=== PATIENT | female | born 1960 | race Caucasian/White ===

== ENCOUNTER 2017-09-18 09:54 | Emergency (ER) | payer MEDICARE ==
[~2017-09-18] VITALS: Ht 167.6 cm; Wt 85.0 kg
[~2017-09-18 09:54] MED LIST: ALBU8.5H8 IH; CLON1TAB4 PO; CLOT12CR TOP; CLOT15CR9 TP; CYCL-1 PO; HYDR-569 PO; LAMO200T PO; LIDO700A5 TOP; MEDR5TAB PO; METH-360 PO; METH4TAB3 PO; METO-477 PO; MONT10TA21 PO; NYSPWD TP; OMEP40CA37 PO; ONDA4TAB6 PO; ONDA4TAB9 PO; PRAV40TA3 PO; VARE0.5T PO; VENL150C2 PO; [UNRECOGNIZED DRUG - CODE] TOP
[2017-09-18] MEDS ORDERED: cyclobenzaprine 10mg tablet PO ONE (11:55)
[2017-09-18] MEDS ORDERED: CYCL-1 PO (12:03)
[2017-09-18 12:20] VITALS: BP 178/90
[2017-09-18] MEDS ORDERED: METO1TAB12 PO (12:34)
[2017-09-18] MEDS ORDERED: ALBU8.5H8 INH (12:34)
== END 2017-09-18 12:21 | disposition home or self-care (01) ==
LOC: ER 09:54
DX: S39.012A Strain of muscle, fascia and tendon of lower back, initial encounter (principal); I10 Essential (primary) hypertension; G89.29 Other chronic pain; J44.9 Chronic obstructive pulmonary disease, unspecified; F17.200 Nicotine dependence, unspecified, uncomplicated; Z88.0 Allergy status to penicillin; Z88.1 Allergy status to other antibiotic agents; Z88.5 Allergy status to narcotic agent; W18.09XA Striking against other object with subsequent fall, initial encounter; Y93.89 Activity, other specified; Y92.89 Other specified places as the place of occurrence of the external cause; Y99.8 Other external cause status
CPT/HCPCS: 99284

== ENCOUNTER 2017-10-31 10:51 | Emergency (ER) | payer MEDICARE, OTHER ==
[~2017-10-31] VITALS: Ht 167.6 cm; Wt 81.8 kg
[~2017-10-31 10:51] MED LIST changes: +ALBU6.7H INH; +ALBU8.5H8 INH; -ONDA4TAB9 PO; +PRED20TA PO
[2017-10-31] MEDS ORDERED: ipratropium/albuterol 3ml nebule NEB ONE (11:10)
[2017-10-31] MEDS ORDERED: methylPREDNISolone sod succ 125mg/2ml vial IV ONE (11:15)
[2017-10-31 11:31] LABS: BASOPHILS % (AUTO) 0.1 % (0-1); EOSINOPHILS % (AUTO) 0 % (0-6); HEMOGLOBIN 12.5 g/dl (12.0-16.0); LYMPHOCYTES # (AUTO) 0.8 X10'3 (1.1-4.8); LYMPHOCYTES % (AUTO) 8.5 % (21-51); MEAN CORPUSCULAR HEMOGLOBIN 27.2 PG (27.0-31.0); MEAN CORPUSCULAR HGB CONC 33.9 % (33.0-36.5); MEAN CORPUSCULAR VOLUME 80.1 FL (78-98); MEAN PLATELET VOLUME 8.2 FL (7.4-10.4); MONOCYTES # (AUTO) 0.9 X10'3 (0-0.9); MONOCYTES % (AUTO) 9.4 % (2-12); NEUTROPHILS # (AUTO) 7.6 X10'3 (1.8-7.7); PLATELET COUNT 200 X10'3 (140-440); RED BLOOD COUNT 4.62 X10'6 (4.20-5.60); RED CELL DISTRIBUTION WIDTH 15.3 % (11.5-14.5); WHITE BLOOD COUNT 9.2 X10'3 (4.5-11.0)
[2017-10-31 11:41] LABS: PARTIAL THROMBOPLASTIN TIME 29 SECONDS (22-32); PROTHROMBIN TIME 10.3 SECONDS (9.0-12.0)
[2017-10-31 11:53] LABS: ALANINE AMINOTRANSFERASE 21 U/L (12-78); ALBUMIN 3.5 G/DL (3.4-5.0); ALKALINE PHOSPHATASE 73 IU/L (46-116); ANION GAP 11 (8-16); ASPARTATE AMINO TRANSFERASE 25 U/L (10-37); BILIRUBIN,TOTAL 0.3 MG/DL (0.1-1.0); BLOOD UREA NITROGEN 7 MG/DL (7-18); BUN/CREATININE RATIO 10.9 (6.6-38.0); CALCIUM 8.9 MG/DL (8.5-10.1); CHLORIDE 103 MMOL/L (99-107); CREATININE 0.64 MG/DL (0.40-0.90); GLUCOSE 125 MG/DL (70-104); POTASSIUM 3.2 MMOL/L (3.5-5.1); SODIUM 141 MMOL/L (135-145); TOTAL CARBON DIOXIDE 27.4 MMOL/L (24-32); eGFR > 90 ML/MIN
[2017-10-31] MEDS ORDERED: ondansetron/PF 4mg/2ml inj IV ONE (12:40)
[2017-10-31] MEDS ORDERED: morphine 4 MG/ML inj SYRINge IM ONE (12:40)
[2017-10-31 14:56] VITALS: BP 148/92
== END 2017-10-31 15:09 | disposition home or self-care (01) ==
LOC: ER 10:52
DX: J44.9 Chronic obstructive pulmonary disease, unspecified (principal); M54.9 Dorsalgia, unspecified; G89.29 Other chronic pain; I10 Essential (primary) hypertension; Z88.1 Allergy status to other antibiotic agents; Z90.49 Acquired absence of other specified parts of digestive tract; Z88.0 Allergy status to penicillin; Z79.899 Other long term (current) drug therapy
CPT/HCPCS: 36415; 71045; 80053; 83880; 84484; 85025; 85610; 85730; 93005; 94640; 94760; 96372; 96374; 96375; 99285; J2270; J2405; J2930

== ENCOUNTER 2018-03-21 01:59 | Emergency (ER) | payer MEDICARE ==
[~2018-03-21] VITALS: Ht 167.6 cm; Wt 69.5 kg
[~2018-03-21 01:59] MED LIST changes: +CLON-371 PO; -CLON1TAB4 PO; -PRED20TA PO
[2018-03-21] MEDS ORDERED: morphine 4 MG/ML inj SYRINge IV ONE (02:05)
[2018-03-21] MEDS ORDERED: ondansetron/PF 4mg/2ml inj IV ONE (02:05)
[2018-03-21] MEDS ORDERED: normal saline 1000ML IV soln IVB ONE (02:05)
[2018-03-21 02:28] LABS: BASOPHILS # (AUTO) 0.1 X10'3 (0-0.2); BASOPHILS % (AUTO) 0.6 % (0-1); EOSINOPHILS # (AUTO) 0.6 X10'3 (0-0.9); EOSINOPHILS % (AUTO) 3.8 % (0-6); HEMATOCRIT 36.5 % (35.0-45.0); HEMOGLOBIN 12.2 g/dl (12.0-16.0); LYMPHOCYTES # (AUTO) 4.1 X10'3 (1.1-4.8); LYMPHOCYTES % (AUTO) 26.6 % (21-51); MEAN CORPUSCULAR HEMOGLOBIN 26.4 PG (27.0-31.0); MEAN CORPUSCULAR HGB CONC 33.5 % (33.0-36.5); MEAN CORPUSCULAR VOLUME 78.9 FL (78-98); MONOCYTES # (AUTO) 0.7 X10'3 (0-0.9); MONOCYTES % (AUTO) 4.7 % (2-12); NEUTROPHILS % (AUTO) 64.3 % (42-75); PLATELET COUNT 200 X10'3 (140-440); RED BLOOD COUNT 4.63 X10'6 (4.20-5.60); RED CELL DISTRIBUTION WIDTH 18.6 % (11.5-14.5); WHITE BLOOD COUNT 15.6 X10'3 (4.5-11.0)
[2018-03-21] MEDS ORDERED: iohexol 300mg/ml 100ml inj. ONE (02:31)
[2018-03-21] MEDS ORDERED: LORA-269 PO (02:38)
[2018-03-21] MEDS ORDERED: ZOL50T PO (02:38)
[2018-03-21] MEDS ORDERED: LURA20TA PO (02:38)
[2018-03-21] MEDS ORDERED: TRAZ-146 PO (02:38)
[2018-03-21] MEDS ORDERED: BUSP10TA11 PO (02:39)
[2018-03-21 02:43] LABS: ALANINE AMINOTRANSFERASE 18 U/L (12-78); ALBUMIN 3.2 G/DL (3.4-5.0); ALBUMIN/GLOBULIN RATIO 0.9 (1.1-1.5); ALKALINE PHOSPHATASE 116 IU/L (46-116); ANION GAP 10 (8-16); ASPARTATE AMINO TRANSFERASE 14 U/L (10-37); BILIRUBIN,TOTAL 0.2 MG/DL (0.1-1.0); BLOOD UREA NITROGEN 5 MG/DL (7-18); BUN/CREATININE RATIO 6.2 (6.6-38.0); CHLORIDE 102 MMOL/L (99-107); CREATININE 0.81 MG/DL (0.40-0.90); GLUCOSE 103 MG/DL (70-104); POTASSIUM 3.6 MMOL/L (3.5-5.1); SODIUM 139 MMOL/L (135-145); TOTAL PROTEIN 6.8 G/DL (6.4-8.2); eGFR 73 ML/MIN
[2018-03-21 02:44] LABS: CREATINE KINASE 49 U/L (26-192); ETHANOL < 0.010 GM/DL (0.0-0.010); LIPASE 146 U/L (73-393); MAGNESIUM 1.8 MG/DL (1.5-2.4)
[2018-03-21 02:54] LABS: URINE AMPHETAMINE SCREEN NEGATIVE (Neg); URINE BARBITUATE SCREEN NEGATIVE (Neg); URINE BENZODIAZEPINES SCREEN NEGATIVE (Neg); URINE CANNABINOID SCREEN NEGATIVE (Neg); URINE COCAINE SCREEN NEGATIVE (Neg); URINE METHADONE SCREEN NEGATIVE (Neg); URINE OPIATE SCREEN NEGATIVE (Neg); URINE PHENCYCLIDINE SCREEN NEGATIVE (Neg)
[2018-03-21 02:56] LABS: CLARITY,URINE CLEAR (Clear); COLOR,URINE STRAW (Yellow); GLUCOSE, URINE NEGATIVE (Neg); KETONES,URINE NEGATIVE (Neg); LEUKOCYTE ESTERASE ,URINE NEGATIVE (Neg); NITRITES, URINE NEGATIVE (Neg); OCCULT BLOOD,URINE NEGATIVE (Neg); PH,URINE 5.5 (4.8-8.0); PROTEIN,URINE NEGATIVE (Neg); UROBILINOGEN,URINE 0.2 E.U/dL (0.2-1.0)
[2018-03-21 02:59] LABS: UA COLLECTION TYPE CLN CATCH MIDSTREAM
[2018-03-21 04:45] VITALS: BP 118/68
[2018-03-21] MEDS ORDERED: LOPE-144 PO (05:20)
[2018-03-21] MEDS ORDERED: CIPR-259 PO (05:20)
[2018-03-21] MEDS ORDERED: METR500T PO (05:20)
== END 2018-03-21 05:40 | disposition home or self-care (01) ==
LOC: ER 02:00
DX: R19.7 Diarrhea, unspecified (principal); K57.30 Diverticulosis of large intestine without perforation or abscess without bleeding; I10 Essential (primary) hypertension; J44.9 Chronic obstructive pulmonary disease, unspecified; F17.200 Nicotine dependence, unspecified, uncomplicated; Z90.49 Acquired absence of other specified parts of digestive tract; Z98.890 Other specified postprocedural states; Z88.0 Allergy status to penicillin; Z88.1 Allergy status to other antibiotic agents; Z79.2 Long term (current) use of antibiotics; Z79.899 Other long term (current) drug therapy
CPT/HCPCS: 36415; 74177; 80053; 80305; 80320; 81003; 82140; 82550; 83690; 83735; 85025; 96361; 96374; 96375; 99285; J2270; J2405; J7030; Q9967

== ENCOUNTER 2018-12-15 09:30 | Outpatient (CLI) | payer MEDICARE ==
[~2018-12-15 09:30] MED LIST changes: -ALBU6.7H INH; -ALBU8.5H8 INH; +BARIUM SULFATE 340 ML SUSP.RECON***PROCEDURE AREA ONLY**DONT ENTER PO ONE; +BARIUM SULFATE/METHYLCELLULOSE 600 ML SUSPENSION BOTTLE**DONT ENTER PO ONE; +BUSP10TA11 PO; -CLON-371 PO; -CLOT12CR TOP; -CLOT15CR9 TP; -CYCL-1 PO; -HYDR-569 PO; -LAMO200T PO; -LIDO700A5 TOP; +LOPE-144 PO; +LORA-269 PO; +LURA20TA PO; -MEDR5TAB PO; -METH-360 PO; -METH4TAB3 PO; -METO-477 PO; -MONT10TA21 PO; -NYSPWD TP; -OMEP40CA37 PO; -ONDA4TAB6 PO; -PRAV40TA3 PO; +TRAZ-219 PO; -VARE0.5T PO; +ZOL50T PO; -[UNRECOGNIZED DRUG - CODE] TOP
== END 2018-12-15 23:59 | disposition home or self-care (01) ==
LOC: RAD 09:30
PROVIDERS: ATTEND Family Medicine
DX: K52.9 Noninfective gastroenteritis and colitis, unspecified (principal); J44.9 Chronic obstructive pulmonary disease, unspecified; I10 Essential (primary) hypertension; F17.200 Nicotine dependence, unspecified, uncomplicated
CPT/HCPCS: 74245

== ENCOUNTER 2019-04-04 10:37 | Emergency (ER) | payer MEDICARE ==
[~2019-04-04] VITALS: Ht 167.6 cm; Wt 78.0 kg
[~2019-04-04 10:37] MED LIST changes: -BARIUM SULFATE 340 ML SUSP.RECON***PROCEDURE AREA ONLY**DONT ENTER PO ONE; -BARIUM SULFATE/METHYLCELLULOSE 600 ML SUSPENSION BOTTLE**DONT ENTER PO ONE; +SERT-153 PO; -ZOL50T PO
[2019-04-04 10:55] VITALS: BP 96/44
[2019-04-04] MEDS ORDERED: TRIAMCINOLONE DT STA (11:45)
[2019-04-04] MEDS ORDERED: mag & alum hydrox/simeth susp 40 ML, diphenhydrAMINE oral solution 100 MG, LIDOcaine Vi... PO ONE ×3 (12:06)
--- NOTE | 2019-04-04 12:06 | NUR ---
SPOKE WITH GUILLERMO MAYORGA, INFORMED HER PHARMACY DOES NOT CARRY KENALOG PASTE. VERBAL ORDER GIVEN FOR MAGIC MOUTHWASH OF BENADRYL, MAALOX AND LIDO. SPOKE WITH YARIEL, PHARMACIST AND WILL PUT ORDER INTO SYSTEM
== END 2019-04-04 12:40 | disposition home or self-care (01) ==
LOC: ER 10:38
DX: K08.89 Other specified disorders of teeth and supporting structures (principal); I10 Essential (primary) hypertension; J44.9 Chronic obstructive pulmonary disease, unspecified; G89.29 Other chronic pain; Z90.49 Acquired absence of other specified parts of digestive tract; Z98.890 Other specified postprocedural states; Z88.0 Allergy status to penicillin; Z88.1 Allergy status to other antibiotic agents; Z79.899 Other long term (current) drug therapy
CPT/HCPCS: 99282; 99283

== ENCOUNTER 2019-10-01 11:39 | Emergency (ER) | payer MEDICARE ==
[~2019-10-01] VITALS: Ht 167.6 cm; Wt 80.0 kg
[~2019-10-01 11:39] MED LIST changes: -TRAZ-219 PO; +TRAZ-256 PO
[2019-10-01 11:41] VITALS: BP 134/73
[2019-10-01 12:18] LABS: BASOPHILS # (AUTO) 0.1 X10'3 (0-0.2); BASOPHILS % (AUTO) 0.7 % (0-1); EOSINOPHILS # (AUTO) 0.2 X10'3 (0-0.9); EOSINOPHILS % (AUTO) 1.8 % (0-6); HEMATOCRIT 39.3 % (35.0-45.0); HEMOGLOBIN 13.4 g/dl (12.0-16.0); LYMPHOCYTES # (AUTO) 2.5 X10'3 (1.1-4.8); LYMPHOCYTES % (AUTO) 24.5 % (21-51); MEAN CORPUSCULAR HEMOGLOBIN 29.1 PG (27.0-31.0); MEAN CORPUSCULAR HGB CONC 34.2 g/dL (33.0-36.5); MEAN CORPUSCULAR VOLUME 84.9 FL (78-98); MEAN PLATELET VOLUME 8.9 FL (7.4-10.4); MONOCYTES # (AUTO) 0.7 X10'3 (0-0.9); MONOCYTES % (AUTO) 6.8 % (2-12); NEUTROPHILS # (AUTO) 6.7 X10'3 (1.8-7.7); NEUTROPHILS % (AUTO) 66.2 % (42-75); PLATELET COUNT 189 X10'3 (140-440); RED BLOOD COUNT 4.63 X10'6 (4.20-5.60); RED CELL DISTRIBUTION WIDTH 15.2 % (11.5-14.5); WHITE BLOOD COUNT 10.1 X10'3 (4.5-11.0)
[2019-10-01 12:38] LABS: ALANINE AMINOTRANSFERASE 24 U/L (12-78); ALBUMIN 3.7 G/DL (3.4-5.0); ALBUMIN/GLOBULIN RATIO 1.1 (1.1-1.5); ALKALINE PHOSPHATASE 85 IU/L (46-116); ANION GAP 11 (8-16); BILIRUBIN,TOTAL 0.3 MG/DL (0.1-1.0); BLOOD UREA NITROGEN 23 MG/DL (7-18); BUN/CREATININE RATIO 27.1 (6.6-38.0); CALCIUM 9.3 MG/DL (8.5-10.1); CHLORIDE 105 MMOL/L (99-107); CREATININE 0.85 MG/DL (0.40-0.90); GLUCOSE 90 MG/DL (70-104); SODIUM 142 MMOL/L (135-145); TOTAL CARBON DIOXIDE 26.5 MMOL/L (24-32); TOTAL PROTEIN 7.2 G/DL (6.4-8.2); eGFR 69 ML/MIN
[2019-10-01 12:45] LABS: ASPARTATE AMINO TRANSFERASE 28 U/L (10-37); POTASSIUM 4.5 MMOL/L (3.5-5.1)
[2019-10-01 12:50] LABS: PARTIAL THROMBOPLASTIN TIME 27 SECONDS (22-32)
[2019-10-01] MEDS ORDERED: acetaminophen 325mg tablet PO ONE (12:50)
[2019-10-01] MEDS ORDERED: methylPREDNISolone sod succ 125mg/2ml vial IV ONE (12:50)
[2019-10-01] MEDS ORDERED: levoFLOXACIN 250mg tablet PO ONE (12:50)
[2019-10-01] MEDS ORDERED: ipratropium/albuterol 3ml nebule NEB ONE (12:50)
[2019-10-01] MEDS ORDERED: ondansetron/PF 4mg/2ml inj IV ONE (12:50)
[2019-10-01] MEDS ORDERED: normal saline 1000ml 1,000 ML IV ONE (12:50)
[2019-10-01] MEDS ORDERED: HYDROcodone/acetaminophen 5mg/325mg tablet PO ONE (12:50)
[2019-10-01] MEDS ORDERED: LORazepam 2 mg/ml vial IV ONE (12:55)
[2019-10-01] MEDS ORDERED: LEVO750T21 PO (13:41)
[2019-10-01] MEDS ORDERED: PRED20TA PO (13:41)
== END 2019-10-01 14:03 | disposition home or self-care (01) ==
LOC: ER 11:39
DX: J44.1 Chronic obstructive pulmonary disease with (acute) exacerbation (principal); F17.210 Nicotine dependence, cigarettes, uncomplicated; I10 Essential (primary) hypertension; G89.29 Other chronic pain; F41.9 Anxiety disorder, unspecified; F31.9 Bipolar disorder, unspecified; F10.99 Alcohol use, unspecified with unspecified alcohol-induced disorder; Z90.49 Acquired absence of other specified parts of digestive tract; Z98.890 Other specified postprocedural states; Z88.0 Allergy status to penicillin; Z88.1 Allergy status to other antibiotic agents; Z79.899 Other long term (current) drug therapy; Y90.9 Presence of alcohol in blood, level not specified
CPT/HCPCS: 36415; 71045; 80053; 83880; 85025; 85610; 85730; 93005; 94640; 96374; 96375; 99284; 99406; J2060; J2405; J2930; J7030; 94760

== ENCOUNTER 2020-05-18 11:53 | Emergency (ER) | payer MEDICARE ==
[~2020-05-18] VITALS: Ht 167.6 cm; Wt 78.8 kg
[2020-05-18 12:19] VITALS: BP 124/59
--- NOTE | 2020-05-18 13:00 | NUR ---
Patient seen and assessed by provider.
== END 2020-05-18 17:13 | disposition home or self-care (01) ==
LOC: ER 11:54
DX: K52.9 Noninfective gastroenteritis and colitis, unspecified (principal); I10 Essential (primary) hypertension; J44.9 Chronic obstructive pulmonary disease, unspecified; G89.29 Other chronic pain; F41.9 Anxiety disorder, unspecified; F31.9 Bipolar disorder, unspecified; Z87.01 Personal history of pneumonia (recurrent); Z87.440 Personal history of urinary (tract) infections; Z90.49 Acquired absence of other specified parts of digestive tract; Z98.890 Other specified postprocedural states; Z72.89 Other problems related to lifestyle; Z88.0 Allergy status to penicillin; Z88.1 Allergy status to other antibiotic agents; Z79.899 Other long term (current) drug therapy
CPT/HCPCS: 99281; 99283

== ENCOUNTER 2023-03-27 20:09 | Emergency (ER) | payer MEDICARE ==
[~2023-03-27] VITALS: Ht 165.1 cm; Wt 95.5 kg
[~2023-03-27 20:09] MED LIST changes: +ALBU18HF2 PO; -ALBU8.5H8 IH; -BUSP10TA11 PO; +LAMO100T PO; -LOPE-144 PO; -LORA-269 PO; -LURA20TA PO; +OMEP20CA16 PO; +ONDA-103 PO; +QUET100T34 PO; -SERT-153 PO; +STADNS NAS; -TRAZ-256 PO; -VENL150C2 PO; +VENL150C58 PO; +VERA80TA7 PO
[2023-03-27 20:15] VITALS: TEMP 98.3
[2023-03-27] MEDS ORDERED: ondansetron 4mg rapidly disintigrating tab PO ONE (23:40)
[2023-03-27 23:42] LABS: CLARITY,URINE CLEAR (Clear); COLOR,URINE STRAW (Yellow); GLUCOSE, URINE NEGATIVE (Neg); KETONES,URINE NEGATIVE (Neg); LEUKOCYTE ESTERASE ,URINE SMALL (Neg); OCCULT BLOOD,URINE NEGATIVE (Neg); PROTEIN,URINE NEGATIVE (Neg); UROBILINOGEN,URINE 0.2 E.U/dL (0.2-1.0)
[2023-03-28 00:11] LABS: ALANINE AMINOTRANSFERASE 17 U/L (12-78); ALBUMIN 3.8 G/DL (3.4-5.0); ALKALINE PHOSPHATASE 94 IU/L (46-116); ANION GAP 11 (8-16); ASPARTATE AMINO TRANSFERASE 17 U/L (10-37); BILIRUBIN,TOTAL 0.4 MG/DL (0.1-1.0); BLOOD UREA NITROGEN 18 MG/DL (7-18); BUN/CREATININE RATIO 17.1 (10.0-20.0); CALCIUM 9.7 MG/DL (8.5-10.1); CHLORIDE 101 MMOL/L (99-107); CREATININE 1.05 MG/DL (0.40-0.90); GLUCOSE 98 MG/DL (70-104); POTASSIUM 3.6 MMOL/L (3.5-5.1); SODIUM 139 MMOL/L (135-145); TOTAL CARBON DIOXIDE 27.1 MMOL/L (24-32); TOTAL PROTEIN 7.5 G/DL (6.4-8.2); eGFR 53 ML/MIN
[2023-03-28 00:13] LABS: NITRITES, URINE NEGATIVE (Neg); UA COLLECTION TYPE CLN CATCH MIDSTREAM
[2023-03-28 00:14] LABS: HEMATOCRIT 37.4 % (35.0-45.0); MEAN PLATELET VOLUME 8.5 FL (7.4-10.4)
[2023-03-28 00:14] LABS: BACTERIA,URINE FEW /HPF (Neg); RBC,URINE 0-2 /HPF (0-2); SQUAMOUS EPITHELIAL CELL,UR MODERATE /LPF (FEW); WBC,URINE 0-4 /HPF (0-4)
[2023-03-28 00:16] LABS: BASOPHILS # (AUTO) 0.1 X10'3 (0-0.2); BASOPHILS % (AUTO) 1.3 % (0-1); EOSINOPHILS # (AUTO) 0.5 X10'3 (0-0.9); EOSINOPHILS % (AUTO) 4.3 % (0-6); HEMOGLOBIN 12.1 g/dl (12.0-16.0); LYMPHOCYTES # (AUTO) 4.1 X10'3 (1.1-4.8); MEAN CORPUSCULAR HEMOGLOBIN 26.6 PG (27.0-31.0); MEAN CORPUSCULAR HGB CONC 32.5 g/dL (33.0-36.5); MONOCYTES # (AUTO) 0.9 X10'3 (0-0.9); MONOCYTES % (AUTO) 7.8 % (2-12); NEUTROPHILS # (AUTO) 5.5 X10'3 (1.8-7.7); NEUTROPHILS % (AUTO) 49.6 % (42-75); PLATELET COUNT 222 X10'3 (140-440); RED BLOOD COUNT 4.56 X10'6 (4.20-5.60); RED CELL DISTRIBUTION WIDTH 15.4 % (11.5-14.5); WHITE BLOOD COUNT 11.2 X10'3 (4.5-11.0)
[2023-03-28] MEDS ORDERED: HYDROcodone/acetaminophen 10/325mg tab PO ONE (00:25)
[2023-03-28 00:52] VITALS: BP 143/77; PULSE 76; RESP 16; O2SAT 98
== END 2023-03-28 00:53 | disposition home or self-care (01) ==
LOC: ER 20:10
DX: R10.9 Unspecified abdominal pain (principal); R30.0 Dysuria; M54.50 Low back pain, unspecified; R11.0 Nausea; M79.10 Myalgia, unspecified site; R53.83 Other fatigue; I10 Essential (primary) hypertension; J44.9 Chronic obstructive pulmonary disease, unspecified; G89.29 Other chronic pain; Z72.89 Other problems related to lifestyle; Z98.891 History of uterine scar from previous surgery; Z90.49 Acquired absence of other specified parts of digestive tract; Z88.0 Allergy status to penicillin; Z88.1 Allergy status to other antibiotic agents; Z79.899 Other long term (current) drug therapy
CPT/HCPCS: 36415; 80053; 81001; 81003; 82140; 84443; 85025; 87088; 99283

== ENCOUNTER 2025-04-07 01:34 | Emergency (ER) | payer MEDICARE ==
[~2025-04-07] VITALS: Ht 167.6 cm; Wt 81.8 kg
--- NOTE | 2025-04-07 03:34 | Physician Documentation ---
History of Present Illness ~ Chief Complaint: Shoulder pain Stated Complaint: SHOULDER PAIN Time Seen by MD: 03:32 OK to notify your PCP?: Yes Primary Medical Doctor: fredrick at [facility] Source: patient, RN/, RN notes reviewed, old records Mode of Arrival: POV Exam Limitations: no limitations HPI 64 year old female with insomnia history seen in bed 12 presents to the emergency department via EMS for complaints of shoulder pain and insomnia. She states that she is having trouble sleeping due to the pain in her right shoulder. She requests a Waban 10 for her pain and 200mg of Seroquil for sleep. She states that she follows up with her primary care and takes medications for sleep. Tetanus within 5 years?: No Medication Reconciliation Allergies: Coded Allergies: Penicillins (Verified Adverse Reaction, Mild, UPSETS HER STOMACH, 04/07/25) cephalexin (Verified Adverse Reaction, Mild, nausea, vomiting, 10/31/17) erythromycin base (Unverified Adverse Reaction, Unknown, UPSETS STOMACH, 10/31/17) Scheduled Lamotrigine (LaMICtal tablet), 3 TAB PO DAILY, (Reported) Omeprazole (Omeprazole), 1 CAP PO BKF, (Reported) Quetiapine Fumarate (Quetiapine Fumarate), 1.5 TAB PO TID, (Reported) Venlafaxine Hcl (Venlafaxine Hcl Er), 2 CAP PO QAM, (Reported) Verapamil Hcl (Verapamil Hcl), 1 TAB PO DAILY, (Reported) Scheduled PRN Albuterol Sulfate (Ventolin Hfa), 2 PUFFS PO Q4H PRN for SOB or wheezing, (Reported) Butorphanol Tartrate Nasal [place] * (Stadol Nasal [place]*), 1 SPRAY KEN[place] DAILY PRN for headache, (Reported) Ondansetron HCl (Ondansetron HCl), 1 TAB PO TID PRN for nausea/vomiting, (Reported) Past Medical History Past Medical History: Hypertension, Asthma, Bronchitis, COPD, Pneumonia, UTI, Chronic Pain, Chronic Back Pain, Anxiety, Bipolar, Depression Past Surgical History: cholecystectomy, , orthopedic surgeries Patient History: (CAD) Coronary arteriosclerosis FATHER, Onset:Unknown (DM Type 2) Diabetes mellitus type 2 MOTHER, Onset:Unknown (SC) Myocardial infarction FATHER, Onset:Unknown Cardiac arrest FATHER, Onset:Unknown Alcohol Use: Sober Drug Use: none Lives with: Family Lives In: Home Occupation: disabled Review of Systems All Other Systems at this time: Reviewed and Negative ROS As stated above in the HPI, otherwise all systems are reviewed and negative. Physical Exam Vital Signs: RN Vital Signs have been reviewed: Yes, Temperature: 97.7, Source: Temporal, Heart Rate: 81, Respiratory Rate: 16, BP: 155/81, Pulse Oximetry: 94, Weight: 81.750 Oxygen Flow Rate: 0 Pulse Oximetry Reflects: adequate oxygenation Physical Exam General: The patient is well developed, well nourished, nontoxic appearing and is in no acute distress. Skin: Ceres, warm and dry with no rashes. HEENT: Head was normocephalic and atraumatic. Eyes - pupils equal, round, reactive to light and accommodation. Extraocular movements were intact. Conjunctivae were nonicteric. Ears - bilateral tympanic membranes were normal. The mouth and oropharynx were clear with moist mucous membranes. There were no pharyngeal exudates or erythema. Neck: Supple and nontender. There was no jugular venous distention, lymphadenopathy, thyromegaly or masses. Chest: Clear to auscultation bilaterally without wheezes, rales or rhonchi. No accessory muscle use. No dullness to percussion. Heart: Rate regular and rhythmic. S1, S2. No murmurs. Palpation of the chest wall was normal. No rubs or thrills. Abdomen: Soft, nontender and nondistended. Positive bowel sounds. No guarding or rebound. No hepatosplenomegaly or palpable masses. Extremities: Pain with movement in right shoulder. No cyanosis, clubbing or edema. The patient moves all extremities. Pulses were equal and symmetric. Neurologic: Cranial nerves II-XII were intact. Sensation was intact to light touch throughout. Motor strength was 5/5 in all four extremities. Deep tendon reflexes were intact in both upper and lower extremities. Psychologic: The patient was oriented to person, place and time. The patient demonstrated appropriate judgement and insight. Progress Results/Orders Reviewed/noted all lab results: Yes Results/Orders Completed Orders - TASHI AGUILAR MD Quetiapine Fumarate Tablet (Seroquel) (04/07/25 21:00) Hydrocodone/Apap 10/325 (Waban 10/325mg (04/07/25 04:05) Ondansetron Disint. Tablet (Zofran Odt T (04/07/25 04:05) Quetiapine Fumarate Tablet (Seroquel) (04/07/25 04:20) Vital Signs 04/07/25 04/07/25 01:38 04:33 Temp 97.7 98.6 Pulse 81 76 Resp 16 18 B/P (MAP) 155/81 150/78 Pulse Ox 94 99 O2 Flow Rate 0 Re-Evaluation Re-Evaluation : Re-Evaluation: Improved Progress Patient was seen and examined. Patient is given reassurance. Patient has a history of insomnia. She requested some Zofran as well as pain medications. She received both. She was given Waban 10 as well as Zofran four. As far as sleep she normally takes Seroquel she received extra doses and was given reassurance and discharged home. Patient was then discharged home to follow up with her physician as needed. As far as her shoulder she has chronic pain no acute findings. Patient's main concern was that the pain was keeping her up and she can not sleep Medical Decision Making Additional info obtained from: old records Differential Dx:Considerations: Include: AC separation, Adhesive capsulitis, arthritis, Bicipital tendonitis, Calcific tendonitis, Cervical disc disease, Contusion, Dislocation, Fracture: Humerus, Fracture: Scapula, Fracture: Clavicle, Gallbladder Disease, Hematoma, Impingement syndrome, Myocardial infarction, Neurovascular Injury, Rotator cuff injury, SC dislocation, Sprain, Subacromial bursitis, other Departure Time of Disposition: 03:55 Disposition: 01 HOME / SELF CARE / HOMELESS Impression: Primary Impression: Insomina Additional Impression: Chronic shoulder pain Qualified Codes: M25.511 - Pain in right shoulder; G89.29 - Other chronic pain Condition: Stable Discharge Instructions: Shoulder Pain, [id number] Referrals: NO PRIMARY CARE PROVIDER (PCP) Education Educated: Patient Educated regarding: diagnosis, treatment, prognosis, need for follow up Signature Scribe Signature: Scribed for Tashi Aguilar MD by Edna Krishna . 04/07/25 03:55 Attestation: The very real possibility of a deterioration of this patient's condition required the highest level of my preparedness for sudden, emergent intervention. I provided critical care services, which included medication orders, frequent reevaluations of the patient's condition and response to treatment, ordering and reviewing test results, and discussing the case with various consultants. Excludes time spent performing separately billable procedures. The critical care time associated with the care of the patient was. TASHI AGUILAR MD Apr 07, 2025 03:34 EDNA DELGADILLO Apr 07, 2025 03:55
[2025-04-07] MEDS: ondansetron 4mg rapidly disintigrating tab PO ONE (04:25)
[2025-04-07] MEDS: HYDROcodone/acetaminophen 10/325mg tab PO ONE (04:25)
[2025-04-07 04:33] VITALS: BP 150/78; PULSE 76; RESP 18; TEMP 98.6; O2SAT 99
== END 2025-04-07 04:34 | disposition home or self-care (01) ==
LOC: ER 01:34
DX: G89.29 Other chronic pain (principal); M25.511 Pain in right shoulder; E11.9 Type 2 diabetes mellitus without complications; F31.9 Bipolar disorder, unspecified; I10 Essential (primary) hypertension; J44.9 Chronic obstructive pulmonary disease, unspecified; I25.10 Atherosclerotic heart disease of native coronary artery without angina pectoris; Z90.49 Acquired absence of other specified parts of digestive tract; Z88.1 Allergy status to other antibiotic agents; Z88.0 Allergy status to penicillin; Z79.899 Other long term (current) drug therapy
CPT/HCPCS: 99284

== ENCOUNTER 2025-06-22 20:53 | Emergency (ER) | payer MEDICARE ==
[~2025-06-22] VITALS: Ht 165.1 cm; Wt 86.4 kg
[2025-06-22 20:59] VITALS: BP 142/69; PULSE 89; TEMP 98; O2SAT 98
[2025-06-22 21:08] VITALS: RESP 16
--- NOTE | 2025-06-22 22:43 | Physician Documentation ---
History of Present Illness ~ Chief Complaint: Mechanical Fall Stated Complaint: FALL Time Seen by MD: 21:40 Primary Medical Doctor: fredrick at [facility] Mode of Arrival: EMS, Stretcher HPI 65-year-old female had a mechanical fall at home that was not precipitated with dizziness, palpitations chest pain or shortness a breath subsequently with a head strike without loss of consciousness. She was brought in by ambulance for evaluation. Initially had some dizziness and was not ambulatory. She had no associated nausea or vomiting or visual difficulties. She is not on blood thinners. She is well oriented at this time GCS score of 15 and moves all extremities well. She is grossly neurologically intact without obvious focal neuro deficits. There is no obvious lacerations or abrasions though there is a small contusion to the left frontal scalp. No reported cervical spine tenderness. Tetanus within 5 Years?: No Medication Reconciliation Allergies: Coded Allergies: Penicillins (Verified Adverse Reaction, Mild, UPSETS HER STOMACH, 06/22/25) cephalexin (Verified Adverse Reaction, Mild, nausea, vomiting, 06/22/25) erythromycin base (Unverified Adverse Reaction, Unknown, UPSETS STOMACH, 06/22/25) Scheduled Lamotrigine (LaMICtal tablet), 3 TAB PO DAILY, (Reported) Omeprazole (Omeprazole), 1 CAP PO BKF, (Reported) Quetiapine Fumarate (Quetiapine Fumarate), 1.5 TAB PO TID, (Reported) Venlafaxine Hcl (Venlafaxine Hcl Er), 2 CAP PO QAM, (Reported) Verapamil Hcl (Verapamil Hcl), 1 TAB PO DAILY, (Reported) Scheduled PRN Albuterol Sulfate (Ventolin Hfa), 2 PUFFS PO Q4H PRN for SOB or wheezing, (Reported) Butorphanol Tartrate Nasal [place] * (Stadol Nasal [place]*), 1 SPRAY [place] DAILY PRN for headache, (Reported) Ondansetron HCl (Ondansetron HCl), 1 TAB PO TID PRN for nausea/vomiting, (Reported) Past Medical History Past Medical History: Hypertension, Asthma, Bronchitis, COPD, Pneumonia, UTI, Chronic Pain, Chronic Back Pain, Anxiety, Bipolar, Depression Past Surgical History: cholecystectomy, , orthopedic surgeries Patient History: (CAD) Coronary arteriosclerosis FATHER, Onset:Unknown (DM Type 2) Diabetes mellitus type 2 MOTHER, Onset:Unknown (ID) Myocardial infarction FATHER, Onset:Unknown Cardiac arrest FATHER, Onset:Unknown Alcohol Use: Sober Drug Use: none Lives with: Family Lives In: Home Occupation: disabled Review of Systems All Other Systems at this time: Reviewed and Negative Neurological Contusion left forehead Physical Exam Vital Signs: RN Vital Signs have been reviewed: Yes, Temperature: 98.0, Source: Oral, Heart Rate: 89, Respiratory Rate: 16, BP: 142/69, Pulse Oximetry: 98, Weight: 86.360 Oxygen Flow Rate: 0 General Appearance: alert, WD/WN, mild distress Head: tenderness, other (Very small contusion of the forehead); No: active bleeding, Sagastume's Sign, ecchymosis, flap, lacerations, raccoon eyes, swelling Face: normal Eye Lid: normal inspection Pupils/EOM/Fundus: PERRLA Ears: normal inspection Nose: normal inspection Mouth: normal inspection Neck: non-tender, full range of motion, normal alignment, normal inspection; No: tenderness Respiratory: no respiratory distress Chest: normal inspection Cardiovascular: normal peripheral pulses Gastrointestinal: non-tender Back: normal inspection Skin: warm/dry Neurologic: oriented x4, helminthology teacher II-XII nml as tested Motor / Sensory: no motor deficit, no sensory deficit Cerebellar function exam: normal Thoughts/Hallucinations: normal thought pattern Affect: appropriate Best Eye Response: (4) open spontaneously Best Verbal Response: (5) oriented Best Motor Response: (6) obeys commands Progress Results/Orders Results/Orders Orders - YAMILETH DURAN PAC Gait Test (06/22/25 ) Completed Orders - YAMILETH DURAN PAC Electrocardiogram (06/22/25 21:03) Vital Signs 06/22/25 06/22/25 20:59 21:08 Temp 98.0 Pulse 89 Resp 16 16 B/P (MAP) 142/69 Pulse Ox 98 O2 Flow Rate 0 Medical Decision Making Additional information obtaine: N/A Findings 65-year-old female mechanical fall without loss of consciousness and not on blood thinners. While alert and oriented at this time without cervical spine tenderness. No indication for CT imaging and she is a while alert and oriented without exam findings, altered orientation or other risk factors. Watched in the emergency department, ambulates without difficulty and safe for stable discharge with strict aftercare instructions. Remains while oriented without focal neuro deficits. Differential Dx:Considerations: Include: Closed head injury (Working diagnosis), Hematoma(s), Laceration(s), Encephalopathy (A likely), Other (No consideration for facial fractures) Departure Disposition: 01 HOME / SELF CARE / HOMELESS Impression: Primary Impression: Closed head injury Qualified Codes: S09.90XA - Unspecified injury of head, initial encounter Additional Impression: Mechanical fall Condition: Improved Discharge Instructions: Fall Prevention in the Home, Adult, [id number], Head Injury, Adult, [id number] Additional Instructions: Tonight in the emergency department you were seen and evaluated for head injury not requiring CT imaging. Please take Tylenol for discomfort follow up with the primary care physician and return to the emergency department as needed. Thank you for visiting [facility]. Referrals: NO PRIMARY CARE PROVIDER (PCP) Education Educated: Patient Educated regarding: diagnosis, treatment, prognosis, need for follow up (Primary care follow up) Signature Scribe Signature: . Attestation: . YAMILETH DURAN PAC Jun 22, 2025 22:43
--- NOTE | 2025-06-23 08:29 | ELECTROCARDIOGRAPH REPORT ---
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 Tashi Avilez Measurements Intervals [place] Rate: 83 P: 66 [place]: 193 QRS: 40 QRSD: 103 T: 19 QT: 376 QTc: 442 Interpretive Statements Sinus rhythm Biatrial enlargement Anteroseptal infarct, old Electronically Signed On 06-25-2025 7:41:[address] Tashi Avilez Please click the below link to view image of tracing.
== END 2025-06-22 22:58 | disposition home or self-care (01) ==
LOC: ER 20:53
DX: S00.83XA Contusion of other part of head, initial encounter (principal); E11.9 Type 2 diabetes mellitus without complications; F31.9 Bipolar disorder, unspecified; F41.9 Anxiety disorder, unspecified; G89.29 Other chronic pain; I10 Essential (primary) hypertension; I25.10 Atherosclerotic heart disease of native coronary artery without angina pectoris; I25.2 Old myocardial infarction; J44.9 Chronic obstructive pulmonary disease, unspecified; Z88.0 Allergy status to penicillin; Z88.1 Allergy status to other antibiotic agents; Z90.49 Acquired absence of other specified parts of digestive tract; Z87.440 Personal history of urinary (tract) infections; Z79.899 Other long term (current) drug therapy; W18.30XA Fall on same level, unspecified, initial encounter; Y93.89 Activity, other specified; Y92.009 Unspecified place in unspecified non-institutional (private) residence as the place of occurrence of the external cause; Y99.8 Other external cause status
CPT/HCPCS: 93005; 99284